=== PATIENT | male | born 1970 | race Caucasian/White ===

== ENCOUNTER 2021-03-19 19:49 | Emergency (ER) | payer OTHER, SELFPAY ==
[2021-03-19] VITALS (18 sets, daily range): BP systolic 111–144; BP diastolic 73–97; PULSE 59–86; RESP 18–24; TEMP 36.6; O2SAT 89–98; BMI 20.9
--- NOTE | 2021-03-19 20:17 | XRR_ITS ---
PROCEDURE INFORMATION: Exam: XR Chest Exam date and time: 03/19/2021 8:17 PM Age: 50 years old Clinical indication: Shortness of breath; Additional info: SOB TECHNIQUE: Imaging protocol: XR of the chest. Views: 1 view. COMPARISON: No relevant prior studies available. FINDINGS: Lungs: Streaky bibasilar atelectasis noted. No focal consolidation. Pleural spaces: Unremarkable. No pleural effusion. No pneumothorax. Heart/Mediastinum: Unremarkable. No cardiomegaly. Bones/joints: Degenerative changes of the spine seen. XR/XR chest 1V portable [id number] IMPRESSION: No evidence of active cardiopulmonary disease.
--- NOTE | 2021-03-19 20:17 | ECG_ITS ---
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 Measurements Intervals [place] Rate: 64 P: 74 NM: 156 QRS: 64 QRSD: 105 T: 65 QT: 402 QTc: 417 Interpretive Statements SINUS RHYTHM No previous ECG available for comparison Electronically Signed On 03-20-2021 17:08:19 CDT by Jan Wilson M.D. [id number]
[2021-03-19] MEDS: ipratropium-albuterol 3 mL Neb INHALATION (20:37)
[2021-03-19] MEDS: sodium chloride 0.9% 1,000 ML 999 ML IV (21:11)
[2021-03-19 21:13] LABS: ABG PCO2 37.3 mmHg (35-45); ABG PH Result 7.43 (7.35-7.45); Base Excess ABG 0.8 mmol/L (-2.0-2.0); Blood Gas Allen Test Pos; Blood Gas Sample Site Radial, left; Blood Gas Sample Type Arterial; HCO3 ABG 24.9 mmol/L (22-26); HGB O2 Sat 93.7 % (95-100); Oxygen Device NC; PO2 ABG 71.9 mmHg (80.0-100.0)
[2021-03-19 21:13] LABS: Basophils # 0.1 10^3/uL (0.0-0.1); Basophils % 0.9 %; Eosinophils # 0.7 10^3/uL (0.0-0.8); Eosinophils % 5.4 %; Hematocrit 43.8 % (42.0-52.0); Hemoglobin 14.4 g/dL (11.7-16.6); Lymphocytes # 1.5 10^3/uL (0.8-4.8); Lymphocytes % 12.4 %; Mean Corpuscular HGB Conc 32.9 g/dL (30.0-36.0); Mean Corpuscular Hemoglobin 31.9 pg (28.0-34.0); Mean Corpuscular Volume 97.1 fL (80-94); Mean Platelet Volume 9.7 fL (7.4-10.4); Monocytes # 0.9 10^3/uL (0.2-0.9); Neutrophils # 9.13 10^3/uL (1.8-7.7); Neutrophils % 73.9 %; Nucleated Red Blood Cells % 0 %; Platelet Count 348 10^3/cmm (130-400); Red Blood Count 4.51 10^6/uL (4.1-5.3); Red Cell Distribution Width 13.4 % (12.1-15.1); White Blood Count 12.4 10^3/uL (4.0-10.0)
[2021-03-19 21:44] LABS: Alanine Aminotransferase 9 U/L (0-41); Albumin Level 4.4 g/dL (3.5-5.2); Alkaline Phosphatase 88 IU/L (40-130); Anion Gap 14.4 (5-19); Aspartate Amino Transferase 17 U/L (0-40); Blood Urea Nitrogen 15 mg/dL (6-20); Calcium 9.5 mg/dL (8.5-10.5); Carbon Dioxide 25 mmol/L (22-29); Chloride 104 mmol/L (98-107); Globulin 2.5 g/dL (1.3-4.6); Glomerular Filtration Rate 89.3 mL/min (90-130); Glucose 132 mg/dL (65-115); NT Pro B Type Natriuretic Pept 91 pg/mL (0-125); Osmolality Calculated 293 mOsm/kg (285-295); Potassium 3.4 mmol/L (3.5-5.1); Sodium 140 mmol/L (136-145); Total Bilirubin 0.2 mg/dL (0.15-1.2); Total Protein 6.9 g/dL (6.6-8.7)
--- NOTE | 2021-03-19 21:46 | W.ED.SOB ---
HPI - SOB/Dyspnea General: Chief Complaint: Shortness of Breath/Dyspnea Stated Complaint: DIFF BREATHING/ASTHMA - INHALERS NOT HELPING Time Seen by Provider: 03/19/21 20:17 History of Present Illness: HPI Narrative: 50-year-old patient with significant asthma history. He states that he mowed his lawn yesterday, and began to get short of breath last night. He is wheezing significantly. His rescue inhaler at home was not helping as much as it should. He presents exceptionally short of breath. He denies COVID-19 exposure. He has not been tested recently. He has not been vaccinated MD elicited complaint: shortness of breath Pertinent past history: asthma Onset (ago): hour(s) Context: allergen exposure (Possibly) Timing: progressively worsening Severity: moderate Exacerbating factors: exertion, movement and coughing Relieving factors: oxygen Known history of: asthma Associated symptoms: Reports cough, dizziness and rash; Deny chest pain, fever(s), nausea or vomiting Treatment prior to arrival: bronchodilator Review of Systems Const: Denies: fever(s) Eyes: Denies: change in vision ENMT: Denies: odynophagia, post nasal drip or sinus pain Card: Denies: chest pain Resp: Reports: dyspnea, non-productive cough and wheezing; Denies: productive cough GI: Denies: nausea or vomiting : Denies: difficulty urinating or hematuria Musc: Denies: neck pain, joint redness or joint warmth Skin/Breast: Denies: rash Neuro: Reports: dizziness Psych: Denies: anxiety PFSH ED PFSH: Medical History (Updated 03/19/21 @ 23:13 by Mor Reis DO) Allergic rhinitis due to allergen Bronchitis COPD (chronic obstructive pulmonary disease) Social History (Updated 01/25/21 @ 08:25 by Dorina Manjarrez LPN) Smoking and tobacco status: current every day smoker Alcohol intake: current Physical Exam Const: GENERAL APPEARANCE: well developed ORIENTATION/CONSCIOUSNESS: Yes oriented to person, Yes oriented to place and Yes oriented to time HENMT: COMMON NORMALS: normocephalic, external ears normal and Normal external nose present HEAD & SCALP: normocephalic FACE & SINUS: normal facial exam NOSE: Normal external nose present and No nasal discharge present EXTERNAL EAR: Yes external ears normal MOUTH: tongue normal THROAT: posterior oropharynx normal; no peritonsillar mass Eye: COMMON NORMALS: Equal, round and reactive pupils present, EOMs intact bilaterally and conjunctivae normal EYELID: eyelids normal CONJUNCTIVA: Yes conjunctivae normal PUPIL: Yes Equal, round and reactive pupils present Neck/C-Spine: GENERAL: No tracheal deviation Chest: COMMONS NORMALS: normal inspection of the chest CHEST: No tenderness Resp: EFFORT & INSPECTION: Yes tachypneic, Yes respiratory distress, Yes retractions, No uses accessory muscles and No tracheal deviation AUSCULTATION: no rhonchi, wheezes and diminished lung sounds Cardio: COMMON NORMALS: regular rate and regular rhythm RATE: regular rate RHYTHM: regular rhythm HEART SOUNDS: no murmurs PERIPHERAL PULSES: radial pulses present GI: INSPECTION: No abdominal distension AUSCULTATION: No Hyperactive bowel sounds present and No Hypoactive bowel sounds present PALPATION: No Guarding due to palpation present (GI) and No Rigid due to palpation Neuro: SENSORIUM/ORIENTATION: Yes oriented to person, Yes oriented to place and Yes oriented to time Psych: COMMON NORMALS: mental status grossly normal Skin: COMMON NORMALS: no rashes or lesions noted GENERAL SKIN EXAM: no rashes or lesions noted Course Vital Signs: Vital signs: Vital Signs Temperature 97.9 F 03/19/21 20:00 Pulse Rate 69 03/19/21 23:44 Respiratory Rate 18 03/19/21 23:44 Blood Pressure 129/88 03/19/21 23:44 Pulse Oximetry 95 03/19/21 23:44 MDM - SOB/Dyspnea MDM Narrative: Medical decision making narrative: Significant wheezing on exam chest x-ray is clear. He is responded to bronchodilator treatment in the ER as well as Solu-Medrol. He is much improved. He is off oxygen. He is resting comfortably. Will send home with a couple of doses of DuoNeb, as well as corticosteroids Lab Data: Labs: Lab Results 03/19/21 03/19/21 03/19/21 Range/Units 21:00 21:00 21:05 WBC 12.4 H (4.0-10.0) 10^3/ uL RBC 4.51 (4.1-5.3) 10^6/u L Hgb 14.4 (11.7-16.6) g/dL Hct 43.8 (42.0-52.0) % MCV 97.1 H (80-94) fL MCH 31.9 (28.0-34.0) pg MCHC 32.9 (30.0-36.0) g/dL RDW 13.4 (12.1-15.1) % Plt Count 348 (130-400) 10^3/c mm MPV 9.7 (7.4-10.4) fL Neut % (Auto) 73.9 % Lymph % (Auto) 12.4 % Pershing % (Auto) 7.0 % Eos % (Auto) 5.4 % Baso % (Auto) 0.9 % Neut # (Auto) 9.13 H (1.8-7.7) 10^3/u L Lymph # (Auto) 1.5 (0.8-4.8) 10^3/u L Pershing # (Auto) 0.9 (0.2-0.9) 10^3/u L Eos # (Auto) 0.7 (0.0-0.8) 10^3/u L Baso # (Auto) 0.1 (0.0-0.1) 10^3/u L Nucleated RBC % (a uto) 0 % Nucleated RBCs # 0.0 /100WBC Specimen Type Arterial Sample Site Radial, left ABG pH 7.43 (7.35-7.45) ABG pCO2 37.3 (35-45) mmHg ABG pO2 71.9 L (80.0-100.0) mmH g ABG HCO3 24.9 (22-26) mmol/L ABG Base Excess 0.8 (-2.0-2.0) mmol/ L James Test Pos Hematocrit 43.0 (42-52) % Hgb O2 Saturation 93.7 L (95-100) % Carboxyhemoglobin 1.0 (0.4-20.1) %THgb Methemoglobin 1.0 (0.4-1.5) % Total Hemoglobin 14.0 (14-18) g/dL O2 Delivery Device Nc O2 Liters/Min 2.0 % Certified Low Vision Therapist ID [email or web address] Sodium 140 (136-145) mmol/L Potassium 3.4 L (3.5-5.1) mmol/L Chloride 104 (98-107) mmol/L Carbon Dioxide 25 (22-29) mmol/L Anion Gap 14.4 (5-19) BUN 15 (6-20) mg/dL Creatinine 0.9 (0.7-1.2) mg/dL GFR Calculation 89.3 L (90-130) mL/min Glucose 132 H (65-115) mg/dL Calculated Osmolal ity 293 (285-295) mOsm/k g Calcium 9.5 (8.5-10.5) mg/dL Total Bilirubin 0.2 (0.15-1.2) mg/dL AST 17 (0-40) U/L ALT 9 (0-41) U/L Alkaline Phosphata se 88 (40-130) IU/L NT-Pro-B Natriuret Pep 91 (0-125) pg/mL Total Protein 6.9 (6.6-8.7) g/dL Albumin 4.4 (3.5-5.2) g/dL Globulin 2.5 (1.3-4.6) g/dL Discharge Plan Discharge Patient Disposition: Home Clinical Impression: Asthma with exacerbation Qualifiers: Asthma severity: moderate Asthma persistence: persistent Qualified Code(s): J45.41 - Moderate persistent asthma with (acute) exacerbation Condition: Stable Prescriptions: New prednisone 20 mg tablet 60 mg PO DAILY 5 Days Qty: 15 RF: 0 Discontinued prednisone 20 mg tablet 60 mg PO DAILY Qty: 15 RF: 0 No Action albuterol sulfate 90 mcg/actuation HFA aerosol inhaler 2 puff inhalation Q6H PRN (Reason: shortness of breath or wheezing) Qty: 8.5 RF: 2 sulfamethoxazole-trimethoprim [Bactrim DS] 800-160 mg tablet 1 tab PO BID Qty: 20 RF: 0 Discharge Orders: Discharge ED (Routine); Ordered 03/19/21 Ordered By: Mor Reis Referrals: Fran Nair DO [Primary Care Provider] - 1-3 days Discharge Diet: Advance as tolerated Discharge Activity: Increase activity as tolerated Patient Instructions: Asthma (ED) Activity Restrictions/Additional Instructions: Quarantine at home until you get the results of your COVID-19 test back, and it is negative. Medications as directed. Use the DuoNeb treatments you were given every 6 hours, and you may use a straight albuterol treatment in between if needed. Return for worsening shortness of breath, chest discomfort, fever greater than 100, other concerning symptoms. Coding Level of Care Code ED Slat Twister for Chg Fwd Exam Comprehensive
--- NOTE | 2021-03-19 22:11 | PC.NURSE ---
PATIENT TAKEN ON O2 AT THIS TIME, PLACED ON ROOM AIR. DR. MASON NOTIFIED.
[2021-03-21 11:12] LABS: Quest SARS-CoV-2 RNA NOT DETECTED (NOT DETECTED)
== END 2021-03-19 23:46 | disposition home or self-care (01) ==
PROVIDERS: Emergency Provider Emergency Medicine; PCP Electrodiagnostic Medicine
DX: J45.41 Moderate persistent asthma with (acute) exacerbation (principal); J44.9 Chronic obstructive pulmonary disease, unspecified; F17.210 Nicotine dependence, cigarettes, uncomplicated; Z20.822 Contact with and (suspected) exposure to COVID-19
CPT/HCPCS: 36600; 71045; 80053; 82805; 83880; 85025; 87635; 93005; 94640; 96361; 96374; 99284; J2930; J7030

== ENCOUNTER 2021-05-03 03:53 | Emergency (ER) | payer OTHER, SELFPAY ==
[2021-05-03 03:55] VITALS: BP 112/80; PULSE 82; RESP 18; TEMP 36.4; O2SAT 86; BMI 22.6
--- NOTE | 2021-05-03 03:59 | XRR_ITS ---
PROCEDURE INFORMATION: Exam: XR Chest Exam date and time: 05/03/2021 3:59 AM Age: 50 years old Clinical indication: Dyspnea; Additional info: SOB TECHNIQUE: Imaging protocol: XR of the chest. Views: 1 view. Total images: 1 COMPARISON: CR XR chest 1V portable [id number] 03/19/2021 8:41 PM FINDINGS: Lungs: Coarse chronic pulmonary markings. Pleural spaces: Unremarkable. No pleural effusion. No pneumothorax. Heart/Mediastinum: Unremarkable. No cardiomegaly. Bones/joints: Osseous structures are unchanged from the prior exam. XR/XR chest 1V portable [id number] IMPRESSION: 1. Coarse chronic pulmonary markings. 2. No acute cardiopulmonary process.
--- NOTE | 2021-05-03 04:06 | W.ED.SOB ---
HPI - SOB/Dyspnea General: Chief Complaint: Shortness of Breath/Dyspnea Stated Complaint: ASTHMA Time Seen by Provider: 05/03/21 03:56 Source: patient and EMS Mode of arrival: EMS Limitations: no limitations History of Present Illness: HPI Narrative: 50-year-old male has a long history of asthma and is a smoker. He states he woke up this morning 2 AM with an asthma attack. He states that he did not have his rescue inhaler and tried an updraft but had no improvement. He states that he then called EMS. EMS given him albuterol along with terbutaline. Patient's pulse ox here is 90% on room air. They was 84% when they arrived. He denies any cough or fever. Denies any sick contacts. Denies any contact with Covid. Associated symptoms: Deny abdominal pain, chest pain, fever(s), nausea or vomiting Review of Systems Const: Denies: fever(s), chills, body aches or change in appetite Eyes: Denies: blurry vision or eye discomfort ENMT: Denies: throat pain or dental pain Card: Denies: chest pain Resp: Reports: dyspnea and wheezing GI: Denies: abdominal pain, nausea, vomiting or diarrhea : Denies: dysuria Musc: Denies: neck pain or back pain Skin/Breast: Denies: rash Neuro: Denies: headache(s) Psych: Denies: depression John/Lymph: Denies: easy bruising All/Imm: Denies: urticaria PFSH ED PFSH: Medical History Allergic rhinitis due to allergen Bronchitis COPD (chronic obstructive pulmonary disease) Social History Smoking and tobacco status: current every day smoker Alcohol intake: current Physical Exam Const: COMMON NORMALS: no acute distress, patient oriented x3 and healthy appearing HENMT: COMMON NORMALS: normocephalic and atraumatic HEAD & SCALP: normocephalic and atraumatic Eye: COMMON NORMALS: Equal, round and reactive pupils present and EOMs intact bilaterally PUPIL: Yes Equal, round and reactive pupils present Neck/C-Spine: COMMON NORMALS: full ROM and supple Chest: COMMONS NORMALS: normal inspection of the chest and normal palpation of entire chest wall Resp: COMMON NORMALS: normal respiratory effort, No retractions and No use of accessory muscles AUSCULTATION: wheezes Cardio: COMMON NORMALS: regular rate, regular rhythm and No murmurs present (Cardio) RATE: regular rate RHYTHM: regular rhythm GI: COMMON NORMALS: Normal to inspection, nondistended, normoactive bowel sounds present, Soft to palpation, non-tender and no masses PALPATION: Yes Soft to palpation Extremity: COMMON NORMALS: normal to inspection and full ROM Neuro: COMMON NORMALS: patient oriented x3, moves all extremities and no focal motor deficits Psych: COMMON NORMALS: mental status grossly normal, Normal thought process present and cooperative THOUGHT PROCESS: Normal thought process present Skin: COMMON NORMALS: no rashes or lesions noted and no wounds GENERAL SKIN EXAM: no rashes or lesions noted Course Vital Signs: Vital signs: Vital Signs Temperature 97.5 F L 05/03/21 04:21 Pulse Rate 79 05/03/21 05:04 Respiratory Rate 16 05/03/21 05:04 Blood Pressure 112/80 05/03/21 04:21 Pulse Oximetry 96 05/03/21 05:04 MDM - SOB/Dyspnea MDM Narrative: Medical decision making narrative: Patient presents here with asthma exacerbation. He feels much improved here after breathing treatments. His pulse ox here is 96% on room air. X-ray shows no pneumonia. We will place him on steroids and he is stable for discharge. He is to return if worsening follow-up his PCP. Lab Data: Labs: Lab Results 05/03/21 05/03/21 05/03/21 Range/Units 04:05 04:05 04:11 WBC 9.2 (4.0-10.0) 10^3/ uL RBC 4.59 (4.1-5.3) 10^6/u L Hgb 14.4 (11.7-16.6) g/dL Hct 44.6 (42.0-52.0) % MCV 97.2 H (80-94) fl MCH 31.4 (28.0-34.0) pg MCHC 32.3 (30.0-36.0) g/dL RDW 12.9 (12.1-15.1) % Plt Count 358 (130-400) 10^3/c mm MPV 9.3 (7.4-10.4) fL Neut % (Auto) 50.1 % Lymph % (Auto) 35.9 % Boyle % (Auto) 6.8 % Eos % (Auto) 5.9 % Baso % (Auto) 1.0 % Neut # (Auto) 4.61 (1.8-7.7) 10^3/u L Lymph # (Auto) 3.3 (0.8-4.8) 10^3/u L Boyle # (Auto) 0.6 (0.2-0.9) 10^3/u L Eos # (Auto) 0.5 (0.0-0.8) 10^3/u L Baso # (Auto) 0.1 (0.0-0.1) 10^3/u L Nucleated RBC % (a uto) 0 % Nucleated RBCs # 0.0 /100WBC Sodium 142 (136-145) mmol/L Potassium 3.3 L (3.5-5.1) mmol/L Chloride 103 (98-107) mmol/L Carbon Dioxide 27 (22-29) mmol/L Anion Gap 15.3 (5-19) BUN 13 (6-20) mg/dL Creatinine 0.8 (0.7-1.2) mg/dL GFR Calculation 102.3 (90-130) mL/min Glucose 100 (65-115) mg/dL Calculated Osmolal ity 294 (285-295) mOsm/k g Calcium 8.8 (8.5-10.5) mg/dL Total Bilirubin 0.2 (0.15-1.2) mg/dL AST 20 (0-40) U/L ALT 10 (0-41) U/L Alkaline Phosphata se 108 (40-130) IU/L Total Protein 7.2 (6.6-8.7) g/dL Albumin 4.2 (3.5-5.2) g/dL Globulin 3.0 (1.3-4.6) g/dL SARS-CoV-2 Ag (Rap id) Negative (Negative) Imaging Data^: CXR: Attestation: I personally reviewed and interpreted this imaging study as follows: Radiologist's impression: [address] [address] XRay Report Signed Patient: ChelleWesley Unit #: [id number] : 1970 Age/Sex: 50 / M ADM Date: 05/03/21 Loc: ER Room/Bed: Attending Dr: Ordering Provider/Ordering MD: Anjali Barnett MD Date of Service: 05/03/21 Procedure(s): XR chest 1V portable [id number] Accession Number(s): [id number] Report Number: [id number] PROCEDURE INFORMATION: Exam: XR Chest Exam date and time: 05/03/2021 3:59 AM Age: 50 years old Clinical indication: Dyspnea; Additional info: SOB TECHNIQUE: Imaging protocol: XR of the chest. Views: 1 view. Total images: 1 COMPARISON: CR XR chest 1V portable [id number] 03/19/2021 8:41 PM FINDINGS: Lungs: Coarse chronic pulmonary markings. Pleural spaces: Unremarkable. No pleural effusion. No pneumothorax. Heart/Mediastinum: Unremarkable. No cardiomegaly. Bones/joints: Osseous structures are unchanged from the prior exam. XR/XR chest 1V portable [id number] IMPRESSION: 1. Coarse chronic pulmonary markings. 2. No acute cardiopulmonary process. Dictated By: Shahram Willett MD Signed By: Shahram Willett MD Signed Date/Time: 05/03/21520 DD/ 8 Discharge Plan Discharge Patient Disposition: Home Clinical Impression: COPD (chronic obstructive pulmonary disease) Qualifiers: COPD type: chronic bronchitis Chronic bronchitis type: unspecified Qualified Code(s): J42 - Unspecified chronic bronchitis Condition: Stable Prescriptions: New albuterol sulfate 2.5 mg /3 mL (0.083 %) solution for nebulization 2.5 mg INHALATION Q4H PRN (Reason: shortness of breath or wheezing) Qty: 90 RF: 0 prednisone 50 mg tablet 50 mg PO DAILY Qty: 5 RF: 0 albuterol sulfate 90 mcg/actuation HFA aerosol inhaler 2 inh INHALATION Q6H PRN (Reason: shortness of breath or wheezing) Qty: 8 RF: 0 No Action albuterol sulfate 90 mcg/actuation HFA aerosol inhaler See Rx Instructions .ROUTE .COMPLEX Qty: 8.5 RF: 0 Discharge Orders: Discharge ED (Routine); Ordered 05/03/21 Ordered By: Anjali Barnett Referrals: Fran Nair, [Primary Care Provider] - Discharge Diet: Advance as tolerated Discharge Activity: Resume usual activity Patient Instructions: Chronic Obstructive Pulmonary Disease (ED) Coding Level of Care Code 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
[2021-05-03 04:09] LABS: Basophils # 0.1 10^3/uL (0.0-0.1); Eosinophils # 0.5 10^3/uL (0.0-0.8); Eosinophils % 5.9 %; Hematocrit 44.6 % (42.0-52.0); Hemoglobin 14.4 g/dL (11.7-16.6); Lymphocytes # 3.3 10^3/uL (0.8-4.8); Lymphocytes % 35.9 %; Mean Corpuscular HGB Conc 32.3 g/dL (30.0-36.0); Mean Corpuscular Hemoglobin 31.4 pg (28.0-34.0); Mean Corpuscular Volume 97.2 fl (80-94); Mean Platelet Volume 9.3 fL (7.4-10.4); Monocytes # 0.6 10^3/uL (0.2-0.9); Monocytes % 6.8 %; Neutrophils # 4.61 10^3/uL (1.8-7.7); Neutrophils % 50.1 %; Nucleated Red Blood Cells % 0 %; Platelet Count 358 10^3/cmm (130-400); Red Blood Count 4.59 10^6/uL (4.1-5.3); Red Cell Distribution Width 12.9 % (12.1-15.1); White Blood Count 9.2 10^3/uL (4.0-10.0)
[2021-05-03 04:21] VITALS: BP 112/80; PULSE 84; RESP 18; TEMP 36.4; O2SAT 97
[2021-05-03 04:30] LABS: Alanine Aminotransferase 10 U/L (0-41); Albumin Level 4.2 g/dL (3.5-5.2); Alkaline Phosphatase 108 IU/L (40-130); Anion Gap 15.3 (5-19); Aspartate Amino Transferase 20 U/L (0-40); Blood Urea Nitrogen 13 mg/dL (6-20); Calcium 8.8 mg/dL (8.5-10.5); Carbon Dioxide 27 mmol/L (22-29); Chloride 103 mmol/L (98-107); Glomerular Filtration Rate 102.3 mL/min (90-130); Glucose 100 mg/dL (65-115); Osmolality Calculated 294 mOsm/kg (285-295); Potassium 3.3 mmol/L (3.5-5.1); Sodium 142 mmol/L (136-145); Total Bilirubin 0.2 mg/dL (0.15-1.2); Total Protein 7.2 g/dL (6.6-8.7)
[2021-05-03 04:56] LABS: SARS Covid-2 Antigen Negative (Negative)
[2021-05-03 05:04] VITALS: PULSE 79; RESP 16; O2SAT 96
[2021-05-03] MEDS: ipratropium-albuterol 3 mL Neb INHALATION (05:04)
--- NOTE | 2021-05-03 05:15 | ECG_ITS ---
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 Measurements Intervals [place] Rate: 71 P: 70 NH: 148 QRS: 53 QRSD: 110 T: 59 QT: 405 QTc: 441 Interpretive Statements SINUS RHYTHM WITH SINUS ARRHYTHMIA INCOMPLETE RIGHT BUNDLE BRANCH BLOCK [90+ ms QRS DURATION, TERMINAL R IN V1/V2, 40+ ms S IN I/aVL/V4/V5/V6] SEPTAL MYOCARDIAL INFARCTION , PROBABLY OLD [40+ ms Q WAVE IN V1/V2] Compared to ECG 03/19/2021 20:25:41 Incomplete right bundle-branch block now present Myocardial infarct finding now present Electronically Signed On 05-03-2021 17:08:59 CDT by Jan Wilson M.D. [id number]
[2021-05-03 05:52] VITALS: BP 125/85; PULSE 93; RESP 18; TEMP 36.4; O2SAT 98
== END 2021-05-03 05:53 | disposition home or self-care (01) ==
PROVIDERS: Emergency Provider Emergency Medicine; PCP Electrodiagnostic Medicine
DX: J44.9 Chronic obstructive pulmonary disease, unspecified (principal); F17.200 Nicotine dependence, unspecified, uncomplicated
CPT/HCPCS: 71045; 80053; 85025; 87426; 93005; 94640; 96374; 99283; J2930

== ENCOUNTER 2021-11-26 23:45 | Emergency (ER) | payer OTHER, SELFPAY ==
[2021-11-26 23:51] VITALS: BP 162/100; PULSE 94; RESP 18; TEMP 36.3; O2SAT 98; BMI 21.7
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
[2021-11-27] MEDS: tetanus-dipt-pertussis 0.5 mL SDV IM (00:25)
[2021-11-27] MEDS: lidocaine 1% INJ 20 mL INJECTION (01:09)
[2021-11-27] MEDS: amoxicillin 500 mg Capsule PO (02:04)
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
== END 2021-11-27 02:18 | disposition home or self-care (01) ==
PROVIDERS: Emergency Provider Physician Assistant; PCP Electrodiagnostic Medicine
DX: S02.32XB Fracture of orbital floor, left side, initial encounter for open fracture (principal); J44.9 Chronic obstructive pulmonary disease, unspecified; F17.210 Nicotine dependence, cigarettes, uncomplicated; Y04.2XXA Assault by strike against or bumped into by another person, initial encounter; Z23 Encounter for immunization
CPT/HCPCS: 12013; 70450; 70486; 90471; 90715; 99283